=== PATIENT | female | born 1995 ===

== ENCOUNTER 2021-05-15 06:24 | Inpatient (IN) | payer OTHER ==
[~2021-05-15] VITALS: Ht 162.6 cm; Wt 81.6 kg
[2021-05-15] MEDS ORDERED: PRENATAL TABLE1 EAC1 PO (09:18)
== END 2021-05-18 17:48 | disposition home or self-care (01) | DRG 788 ==
LOC: SURG-SUITE 06:24 → LDR 06:24 → SURG-SUITE 21:44
PROVIDERS: ADMIT Specialist; ATTEND Specialist
PROC: 10907ZC Drainage of Amniotic Fluid, Therapeutic from Products of Conception, Via Natural or Artificial Opening (ICD-10-PCS; 2021-05-15)
PROC: 3E033VJ Introduction of Other Hormone into Peripheral Vein, Percutaneous Approach (ICD-10-PCS; 2021-05-15)
PROC: 3E0P7VZ Introduction of Hormone into Female Reproductive, Via Natural or Artificial Opening (ICD-10-PCS; 2021-05-15)
PROC: 4A1HXFZ Monitoring of Products of Conception, Cardiac Rhythm, External Approach (ICD-10-PCS; 2021-05-15)
PROC: 10D00Z1 Extraction of Products of Conception, Low, Open Approach (ICD-10-PCS; principal; 2021-05-15 19:15)
DX: O65.9 Obstructed labor due to maternal pelvic abnormality, unspecified (principal); O62.0 Primary inadequate contractions; O43.123 Velamentous insertion of umbilical cord, third trimester; O99.824 Streptococcus B carrier state complicating childbirth; Z37.0 Single live birth; Z3A.39 39 weeks gestation of pregnancy